=== PATIENT | male | born 1995 | race Caucasian/White ===

== ENCOUNTER 2021-01-03 13:38 | Emergency (ER) | payer OTHER ==
[2021-01-03 13:45] VITALS: BP 97/61; PULSE 68; TEMP 97; BMI 30.4
[2021-01-03] MEDS ORDERED: ALBUTEROL SO4 2.5/IPRATROPIUM 0.5 INH SOL 3 ML VIAL.NEB. NEB ONE ×2 (15:57→16:02)
[2021-01-03] MEDS ORDERED: predniSONE 20 MG TABLET (UD) PO ONE (16:36)
[2021-01-03] MEDS ORDERED: predniSONE 20 MG TABLET (UD) ONE (16:41)
== END 2021-01-03 17:32 | disposition home or self-care (01) ==
LOC: JER 13:38
PROC: 3E0F7GC Introduction of Other Therapeutic Substance into Respiratory Tract, Via Natural or Artificial Opening (ICD-10-PCS; principal; 2021-01-03)
DX: R05.9 Cough, unspecified (principal); J45.909 Unspecified asthma, uncomplicated
CPT/HCPCS: 71046-TC-FY; 94640; 99283-25